=== PATIENT | female | born 1995 | race Caucasian/White ===

== ENCOUNTER 2020-09-03 06:54 | Outpatient (NON) | payer OTHER, SELFPAY ==
[2020-09-03 22:14] LABS: SARS-CoV-2 RNA PCR Positive
== END 2020-09-03 06:55 ==
LOC: ANHCOVIDDT 07:03
PROVIDERS: PCP Nurse Practitioner Family; Visit Provider Nurse Practitioner Family
DX: U07.1 COVID-19 (principal)
CPT/HCPCS: C9803; U0003; U0005